=== PATIENT | female | born 1995 | race Hispanic/Latino ===

== ENCOUNTER 2018-08-12 17:12 | Emergency (ER) | payer OTHER | END 2018-08-12 17:50 | disposition home or self-care (01) | LOC: EDH 17:12 | DX: S93.692A Other sprain of left foot, initial encounter (principal); E07.9 Disorder of thyroid, unspecified; X58.XXXA Exposure to other specified factors, initial encounter; Y93.64 Activity, baseball; Y92.39 Other specified sports and athletic area as the place of occurrence of the external cause; Y99.8 Other external cause status | CPT/HCPCS: 73630 ==

== ENCOUNTER 2019-03-05 23:12 | Emergency (ER) | payer OTHER | END 2019-03-06 00:09 | disposition home or self-care (01) | LOC: EDH 23:12 | DX: J00 Acute nasopharyngitis [common cold] (principal); E07.9 Disorder of thyroid, unspecified | CPT/HCPCS: 99281 ==

== ENCOUNTER 2020-02-14 04:54 | Inpatient (IN) | payer OTHER, MEDICAID ==
[~2020-02-14] VITALS: Ht 152.4 cm; Wt 72.1 kg
[2020-02-14] MEDS ORDERED: LACTATED RINGERS 1000ML IV PRN (05:00)
[2020-02-14 05:05] VITALS: BP 130/89
[2020-02-14] MEDS ORDERED: LACTATED RINGERS 1000ML 1,000 ML IV ONE (05:10)
[2020-02-14] MEDS ORDERED: OXYTOCIN-LR 20 UNITS/1000 ML 1,000 ML IV SCH ×2 (05:45→07:15)
[2020-02-14 05:50] LABS: HEMATOCRIT 31.8 % (36-48); MEAN CORPUSCULAR HEMOGLOBIN 24.9 pg (27.0-33.0); MEAN CORPUSCULAR VOLUME 75.5 fL (79-99); PLATELET COUNT (AUTO) 296 K/uL (130-400); RED BLOOD CELL COUNT(AUTO) 4.21 MIL/uL (4.00-5.50); RED CELL DISTRIBUTION WIDTH 13.4 % (11.0-15.5); WHITE BLOOD COUNT (AUTO) 12.2 K/uL (4.8-10.8)
[2020-02-14] MEDS ORDERED: OXYTOCIN 10 USP UNITS/ML 20 UNIT in LACTATED RINGERS 1000ML 1,000 ML IV SCH (06:15)
[2020-02-14] MEDS ORDERED: ROPIVACAINE 0.2% 100ML VIAL 100 ML EP SCH (07:45)
[2020-02-14] MEDS ORDERED: EPHEDRINE SULFATE 50 MG/ML AMPULE IVP PRN (07:45)
[2020-02-14] MEDS ORDERED: LACTATED RINGERS 500 ML 500 ML IV PRN (07:45)
[2020-02-14] MEDS ORDERED: NALOXONE HCL 0.4 MG/1 ML ML IV PRN (07:45)
[2020-02-14] MEDS ORDERED: FENTANYL CITRATE PF 50 MCG/1 ML 2ML VIAL ONE (07:55)
[2020-02-14] MEDS ORDERED: MISOPROSTOL 200 MCG TABLET VG PRN (10:45)
[2020-02-14] MEDS ORDERED: TRANEXAMIC ACID 1000MG/10ML IV PRN (10:45)
[2020-02-14] MEDS ORDERED: METHYLERGONOVINE MALEATE 0.2 MG/1 ML ML IM PRN (10:45)
[2020-02-14] MEDS ORDERED: LIDOCAINE HCL 1% 20 ML VIAL INJ PRN (10:45)
[2020-02-14] MEDS ORDERED: CEFAZOLIN SODIUM 1 GM VIAL IVP PRN (16:45)
[2020-02-14] MEDS ORDERED: CALDOLOR 800MG+NS 250ML 250 ML IV PRN (16:45)
[2020-02-14] MEDS ORDERED: DURAMORPH PF1 MG/ML 10ML AMP IV ONE (18:00)
[2020-02-14] MEDS ORDERED: PHENYLEPHRINE HCL 10 MG/ML 1ML VIAL IV ONE (18:07)
[2020-02-14] MEDS ORDERED: EPHEDRINE SULFATE 50 MG/ML AMPULE ONE (18:08)
[2020-02-14] MEDS ORDERED: SODIUM CHLORIDE 0.9% 10 ML VIAL ONE (18:08)
[2020-02-14] MEDS ORDERED: OXYTOCIN-LR 20 UNITS/1000 ML 1,000 ML IV PRN (18:15)
[2020-02-14] MEDS ORDERED: MEPERIDINE-PF 75 MG/ML SYG IM PRN (18:15)
[2020-02-14] MEDS ORDERED: SODIUM CHLORIDE 0.9% 10 ML VIAL IVP PRN (18:15)
[2020-02-14] MEDS ORDERED: LANOLIN 30GM OINTMENT TP PRN (18:15)
[2020-02-14] MEDS ORDERED: DEXTROSE 5 %-0.45 % NACL 1,000 ML IV PRN (18:15)
[2020-02-14] MEDS ORDERED: DIPH,PERTUSS(ACELL),TET VAC/PF 0.5 ML VIAL IM PRN (18:15)
[2020-02-14] MEDS ORDERED: PROMETHAZINE HCL 25 MG/ML 1ML AMPULE IM PRN (18:15)
[2020-02-14] MEDS ORDERED: ACETAMINOPHEN-CODEINE 300/30MG TAB PO PRN (18:15)
[2020-02-14] MEDS ORDERED: MEASLES/MUMPS/RUBELLA VACCINE, LIVE 0.5 ML/VIAL SQ PRN (18:15)
[2020-02-14] MEDS ORDERED: BISACODYL 10 MG SUPP.RECT RC PRN (18:15)
[2020-02-14] MEDS ORDERED: DIPHENHYDRAMINE HCL 25 MG CAPSULE PO PRN (18:15)
[2020-02-14] MEDS ORDERED: HYDROCODONE/ACETAMINOPHEN 5/325 MG TAB PO PRN (18:15)
[2020-02-14] MEDS: IBUPROFEN 800 MG TAB PO SCH ×2 (18:15→22:04)
[2020-02-14] MEDS ORDERED: ACETAMINOPHEN EXTRA STRENGTH 500 MG TABLET PO PRN (18:15)
[2020-02-14] MEDS ORDERED: OXYTOCIN 10 USP UNITS/ML ONE (18:17)
[2020-02-14] MEDS ORDERED: ONDANSETRON HCL 4 MG/2 ML VIAL ONE (18:18)
[2020-02-14] MEDS ORDERED: MEPERIDINE-PF 50 MG/ML SYG ONE (18:46)
[2020-02-14] MEDS ORDERED: METOCLOPRAMIDE 10 MG/2 ML VIAL ONE (18:48)
[2020-02-14] MEDS ORDERED: DEXAMETHASONE SOD PHOSPHATE 10MG/ML 1ML VIAL ONE (18:49)
[2020-02-14] MEDS ORDERED: ROPIVACAINE 0.5% 5MG/ML 30ML IJ ONE (18:58)
[2020-02-14] MEDS: CLINDAMYCIN 900 MG/D5% WATER 50 ML IV SCH (20:25)
[2020-02-14] MEDS: DOCUSATE SODIUM 100 MG CAP PO SCH (20:29)
[2020-02-14] MEDS: GENTAMICIN 80 MG/NS 100 ML PB 100 ML IV SCH (20:29)
[2020-02-14 21:30] VITALS: BP 126/77
--- NOTE | 2020-02-14 21:30 | NUR ---
PT. RECEIVED FROM L/D WITH EPIDURAL DRIP, INFUSING WELL. PT ABLE TO MOVE ALL EXTREMITIES. EPIDURAL CATHETER WITH DRESSING CLEAN, D/I.
[2020-02-14] MEDS ORDERED: PREN-154 PO (22:56)
[2020-02-14 23:10] VITALS: BP 125/80
[2020-02-14] MEDS ORDERED: FLU VACC QS2020-21(6MOS UP)/PF 60 MCG/0.5 ML ML IM ONE (23:30)
--- NOTE | 2020-02-15 01:30 | NUR ---
EPIDURAL INFUSING WELL, PT ABLE TO MOVE ALL EXTREMITIES WELL, DENIED PAIN
[2020-02-15] MEDS: CALDOLOR 800MG+NS 250ML 250 ML IV SCH ×2 (01:44→08:59)
[2020-02-15] MEDS: CLINDAMYCIN 900 MG/D5% WATER 50 ML IV SCH ×2 (02:55→10:53)
[2020-02-15 03:08] VITALS: BP 118/58
[2020-02-15] MEDS: GENTAMICIN 80 MG/NS 100 ML PB 100 ML IV SCH ×2 (03:31→11:40)
--- NOTE | 2020-02-15 04:49 | NUR ---
EPIDURAL INFUSED AND BAG CHANGED BY MALACHI LARRY. PT DENIED PAIN. ABLE TO MOVE ALL EXTREMITIES WITHOUT DIFFICULTY.
[2020-02-15 06:50] LABS: HEMATOCRIT 25.8 % (36-48); MEAN CORPUSCULAR HEMOGLOBIN 24.8 pg (27.0-33.0); MEAN CORPUSCULAR HGB CONC 32.9 g/dL (32.0-36.0); MEAN CORPUSCULAR VOLUME 75.2 fL (79-99); RED BLOOD CELL COUNT(AUTO) 3.43 MIL/uL (4.00-5.50); RED CELL DISTRIBUTION WIDTH 13.8 % (11.0-15.5); WHITE BLOOD COUNT (AUTO) 23.2 K/uL (4.8-10.8)
[2020-02-15 07:16] LABS: HEPATITIS Bs ANTIGEN SCREEN P Negative (Negative)
[2020-02-15 07:21] VITALS: BP 119/72
[2020-02-15] MEDS: DOCUSATE SODIUM 100 MG CAP PO SCH (08:59)
[2020-02-15] MEDS: SIMETHICONE 80 MG TAB.CHEW PO PRN ×2 (08:59→18:14)
[2020-02-15] MEDS ORDERED: LIDOCAINE 5% TOPICAL PATCH TP SCH (09:00)
--- NOTE | 2020-02-15 09:10 | NUR ---
EPIDURAL CATHETER REMOVED. PT TOLERATED WELL AND CATHETER TIP INTACT.
[2020-02-15] MEDS: IBUPROFEN 800 MG TAB PO SCH ×2 (10:15→18:15)
[2020-02-15 12:04] VITALS: BP 114/68
--- NOTE | 2020-02-15 12:15 | NUR ---
SCHULTE CATHETER REMOVED. PT TOLERATED WELL. TIP INTACT.
[2020-02-15 16:21] VITALS: BP 121/74
--- NOTE | 2020-02-15 19:00 | NUR ---
DISCHARGE PT LEFT UNIT VIA WHEELCHAIR, WITH BABY IN ARMS, ACCOMPANIED BY SIGNIFICANT OTHER. DENIED PAIN AND HAD NO COMPLAINTS. BABY STRAPPED IN CAR SEAT. PT AND BABY TRANSPORTED BY PERSONAL VEHICLE.
== END 2020-02-15 19:00 | disposition home or self-care (01) | DRG 786 ==
LOC: EDH 04:54 → OBSVTOIN 04:55 → LDH 04:55 → WSH 21:16
PROVIDERS: ADMIT Specialist; ATTEND Specialist
PROC: 10D00Z1 Extraction of Products of Conception, Low, Open Approach (ICD-10-PCS; principal; 2020-02-14 18:00)
PROC: 3E02340 Introduction of Influenza Vaccine into Muscle, Percutaneous Approach (ICD-10-PCS; 2020-02-15)
DX: O42.92 Full-term premature rupture of membranes, unspecified as to length of time between rupture and onset of labor (principal); O75.3 Other infection during labor; O69.81X0 Labor and delivery complicated by cord around neck, without compression, not applicable or unspecified; O32.4XX0 Maternal care for high head at term, not applicable or unspecified; O62.2 Other uterine inertia; E06.3 Autoimmune thyroiditis; O99.284 Endocrine, nutritional and metabolic diseases complicating childbirth; Z3A.38 38 weeks gestation of pregnancy; Z37.0 Single live birth; Z23 Encounter for immunization
CPT/HCPCS: 36415; 85027; 86592; 86850; 86900; 86901; 87340; 90715; A4314; A4344; G0378; J0690; J1100; J1580; J1741; J2175; J2210; J2274; J2370; J2405; J2590; J2765; J2795; J3010; J3490; J7120; Q2035

== ENCOUNTER 2020-08-18 18:58 | Emergency (ER) | payer OTHER, MEDICAID ==
[~2020-08-18 18:58] MED LIST: PREN-154 PO
[2020-08-18] MEDS ORDERED: ONDANSETRON 4MG INJ ONE (19:17)
[2020-08-18] MEDS ORDERED: KETOROLAC 30MG VIAL (30MG/ML) ONE (19:17)
[2020-08-18] MEDS ORDERED: 0.9%NACL 1000ML 1,000 ML IV ONE (19:18)
[2020-08-18 19:30] LABS: BASOPHILS % (AUTO) 0.4 % (0.0-5.0); EOSINOPHILS % (AUTO) 0.6 % (0.0-8.0); HEMATOCRIT 34.6 % (36-48); LYMPHOCYTES % (AUTO) 26.5 % (21.0-51.0); MEAN CORPUSCULAR HEMOGLOBIN 23.7 pg (27.0-33.0); MEAN CORPUSCULAR HGB CONC 32.4 g/dL (32.0-36.0); MEAN CORPUSCULAR VOLUME 73.3 fL (79-99); MONOCYTES % (AUTO) 6.8 % (3.0-13.0); NEUTROPHILS % (AUTO) 65.4 % (40.0-77.0); PLATELET COUNT (AUTO) 292 K/uL (130-400); RED BLOOD CELL COUNT(AUTO) 4.72 MIL/uL (4.00-5.50); RED CELL DISTRIBUTION WIDTH 15.8 % (11.0-15.5); WHITE BLOOD COUNT (AUTO) 11.1 K/uL (4.8-10.8)
[2020-08-18 19:35] LABS: APPEARANCE,URINE Clear (CLEAR); BILIRUBIN,URINE Negative (NEGATIVE); COLOR,URINE Yellow (YELLOW); GLUCOSE, URINE (UA) Negative (NEGATIVE); KETONES,URINE Negative (NEGATIVE); LEUKOCYTE ESTERASE ,URINE Negative (NEGATIVE); NITRATE,URINE Negative (NEGATIVE); OCCULT BLOOD,URINE Negative (NEGATIVE); PROTEIN,URINE Negative (NEGATIVE); UROBILINOGEN,URINE 0.2 mg/dL (0.2-1.0)
[2020-08-18 19:37] LABS: HCG,QUAL RESULT NEGATIVE (NEGATIVE)
[2020-08-18 19:50] LABS: ALBUMIN 4.1 g/dL (3.5-5.0); BILIRUBIN,TOTAL 0.2 mg/dL (0.2-1.0); CREATININE 0.9 mg/dL (0.5-1.5); POTASSIUM 3.2 mmol/L (3.5-5.1); TOTAL PROTEIN, SERUM 8.4 g/dL (6.0-8.3)
[2020-08-18] MEDS ORDERED: POTASSIUM BICARB/CIT AC 25 MEQ TABLET.EFF ONE (20:17)
== END 2020-08-18 20:47 | disposition home or self-care (01) ==
LOC: EDH 18:58
DX: N83.202 Unspecified ovarian cyst, left side (principal); E07.9 Disorder of thyroid, unspecified; Z98.890 Other specified postprocedural states
CPT/HCPCS: 36415; 76856; 80053; 81003; 81025; 85025; 96361; 96374; 96375; 99284; J1885; J2405; J7030

== ENCOUNTER 2022-01-23 16:02 | Emergency (ER) | payer MEDICAID, OTHER ==
[~2022-01-23] VITALS: Ht 152.4 cm; Wt 74.8 kg
[2022-01-23] MEDS ORDERED: ACETAMINOPHEN 500 MG TABLET PO ONE (16:30)
[2022-01-23] MEDS ORDERED: ACETAMINOPHEN 500 MG TABLET ONE (16:44)
[2022-01-23] MEDS ORDERED: NIRM1TAB5 PO (17:03)
[2022-01-23] MEDS ORDERED: IBUP-2071 PO (17:03)
[2022-01-23 17:29] VITALS: BP 126/74
== END 2022-01-23 17:35 | disposition home or self-care (01) ==
LOC: EDH 16:02
DX: U07.1 COVID-19 (principal); E06.3 Autoimmune thyroiditis
CPT/HCPCS: 99283; 87635; 87804 ×2; C9803

== ENCOUNTER 2023-02-18 22:31 | Emergency (ER) | payer MEDICAID ==
[~2023-02-18] VITALS: Ht 152.4 cm; Wt 77.8 kg
[~2023-02-18 22:31] MED LIST changes: +IBUP-2071 PO; +NIRM1TAB5 PO
[2023-02-18] MEDS ORDERED: IBUP-1493 PO (23:41)
[2023-02-18] MEDS ORDERED: AMOX1TAB16 PO (23:41)
[2023-02-18 23:58] VITALS: BP 132/70; PULSE 74; RESP 16; O2SAT 98
== END 2023-02-19 | disposition home or self-care (01) ==
LOC: EDH 22:31
DX: N61.1 Abscess of the breast and nipple (principal)